=== PATIENT | male | born 1945 | race Caucasian/White ===

== ENCOUNTER 2017-02-11 17:59 | Inpatient (IN) ==
[2017-02-11] MEDS ORDERED: ROCEPHIN 1 GM/NS 1 GM/50 ML IVPB IV ONE (19:07)
--- NOTE | 2017-02-11 19:57 | PROVIDER DOCUMENTATION ---
This chart was entered by Bria Henriquez Scribe, acting as scribe for John Conte PA. HPI-General Adult - General Chief Complaint: Fever Stated Complaint: FEVER Time Seen by Provider: 02/11/17 18:19 Source: patient Allergies/Adverse Reactions: Patient Allergies Allergy/AdvReac Type Severity Reaction Status Date / Time azithromycin [From Zithromax] Allergy Unknown Verified 01/27/17 10:27 levofloxacin [From Levaquin] Allergy Unknown Verified 01/27/17 10:27 Home Medications: Home Medication List Medication Instructions Recorded Confirmed Last Taken Type Albuterol Sulfate [Proair Hfa] 8.5 gm IH Q4HR PRN 01/27/17 01/27/17 Unknown History Allopurinol [Zyloprim] 300 mg PO DAILY 01/27/17 01/27/17 Unknown History Amitriptyline HCl [Amitriptyline 100 mg PO HS 01/27/17 01/27/17 Unknown History HCl] Aspirin EC 81 mg PO DAILY 01/27/17 01/27/17 Unknown History Atorvastatin Calcium [Atorvastatin 40 mg PO DAILY 01/27/17 01/27/17 01/26/17 17: 09 History Calcium] Famotidine [Pepcid] 20 mg PO BID 01/27/17 01/27/17 Unknown History Fluticasone 50 Mcg Nasal [place] 1 spray JUAN DAILY 01/27/17 01/27/17 Unknown History [Flonase] Furosemide [Furosemide] 20 mg PO DAILY PRN PRN 01/27/17 01/27/17 Unknown History Isosorbide Mononitrate [Isosorbide 30 mg PO DAILY 01/27/17 01/27/17 Unknown History Mononitrate ER] Lorazepam [Lorazepam] 0.5 mg PO 01/27/17 Unknown History Methocarbamol 500 mg PO BID 01/27/17 01/27/17 Unknown History Metoprolol Succinate [Metoprolol 12.5 mg PO DAILY 01/27/17 01/27/17 Unknown History Succinate] Ondansetron [Zofran] 4 mg IM Q8H PRN PRN 01/27/17 01/27/17 Unknown History Oxycodone HCl/Acetaminophen 1 each PO HS 01/27/17 01/27/17 Unknown History [Endocet 7.5-325 mg Tablet] Pantoprazole Sodium [Pantoprazole 40 mg PO HS 01/27/17 01/27/17 Unknown History Sodium] Pregabalin [Lyrica] 100 mg PO HS 01/27/17 01/27/17 Unknown History Ranitidine HCl [Zantac] 150 mg PO DAILY 01/27/17 01/27/17 Unknown History Sertraline HCl [Sertraline HCl] 100 mg PO DAILY 01/27/17 01/27/17 Unknown History Tamsulosin HCl [Tamsulosin HCl] 0.4 mg PO DAILY 01/27/17 01/27/17 Unknown History - History of Present Illness -Gen Adult Nature of Presenting Problems: 71 year old M presents to the ED from [facility] with a fever and headache x2 days. Pt had labs drawn today and x-ray[place] [id number] and chest x-ray was normal and sinus x-ray was abnormal. Pt has a hx of sinus infections. Pt also c/o nausea and decreased appetite. Location of Pain/Injury: reports: head Pain Radiation: reports: no radiation Quality of Pain: reports: aching Severity: reports: mild Onset/Duration: reports: 2 days ago Timing: reports: still present Associated Symptoms: reports: fever/chills, headaches, nausea Similar Symptoms Previously?: No Recently seen or treated by another doctor?: Yes Review of Systems - Adult - REVIEW OF SYSTEMS - ADULT Constitutional: reports: fever. denies: chills Eyes: reports: no symptoms reported Ears, Nose, Mouth & Throat: reports: no symptoms reported Cardiovascular: reports: no symptoms reported Respiratory: reports: no symptoms reported Gastrointestinal: reports: nausea, poor appetite Genitourinary: reports: no symptoms reported Musculoskeletal: reports: no symptoms reported Integumentary: reports: no symptoms reported Neurological: reports: headache/migraines. denies: dizziness/vertigo Psychiatric: reports: no symptoms reported Endocrine: reports: no symptoms reported Hematologic/Lymphatic: reports: no symptoms reported Allergic/Immunologic: reports: no symptoms reported All Other Systems: Reviewed and Negative Past History - Adult - PAST MEDICAL HISTORY-ADULT Review of Records: reports: Nursing Assessment Review, Medications Reviewed Cardiovascular: reports: HTN Genitourinary: reports: kidney disease Neurological: reports: Seizures/Epilepsy Psychiatric: reports: depression Endocrine/Immune: reports: thyroid disorder - PRIOR SURGERIES/PROCEDURES Surgical/Procedure History: reports: hernia repair, back/neck - IMMUNIZATION STATUS Childhood Immunizations: See Nurse Assessment Flu Vaccine: See Nurse Assessment - SOCIAL HISTORY Smoking: non-smoker Substance Use: none/never Alcohol Use Frequency: occasionally Physical Exam-General - PHYSICAL EXAM-ADULT Initial Vital Signs Reviewed: Yes - CONSTITUTIONAL General Appearance: alert, no apparent distress - HEAD, EARS, NOSE, MOUTH & THROAT HENMT: frontal tenderness, other (bilateral cerumen impaction) - RESPIRATORY Respiratory: chest non-tender, lungs clear, normal breath sounds - CARDIOVASCULAR Cardiovascular: normal peripheral pulses, regular rate, rhythm, no edema - GASTROINTESTINAL (ABDOMEN) Abdominal Exam: non tender, soft - SKIN Integumentary: normal color, normal turgor, warm/dry - PSYCHIATRIC Psych/Mental Status: normal mood/affect, normal thought content, normal thought process, oriented x 3 Progress - PLAN OF CARE/RESULTS Progress/Plan/Lab Results: Vital Signs - 8 hr 02/11/17 18:14 Temperature 99.8 F H Pulse Rate 52 L Respiratory Rate 20 Blood Pressure 127/71 O2 Sat by Pulse Oximetry 93 L Orders Category Date Time Status Saline Loc NOW Care 02/11/17 18:[address] ABD/PELVIS W/ IV CONT ONLY [CT] Stat Exams 02/11/17 18:35 Ordered HEAD/NECK W/CONTRAST [CT] Stat Exams 02/11/17 18:21 Ordered BLOOD CULTURE [BLDCUL] Stat Lab 02/11/17 18:24 Ordered - CT/MRI 1 CT Study: Sinuses Impression: Abnormal (FINDINGS: There is extensive right maxillary sinus disease with subtotal opacification. The right ostiomeatal unit is obstructed by thickened mucosa. There is milder mucosal thickening involving the ethmoid sinuses and sphenoid sinuses bilaterally. The frontal sinuses are clear. The mastoid air cells are clear. The bony structures are grossly intact. IMPRESSION: 1.Right maxillary, bilateral ethmoid, and bilateral sphenoid sinus mucosal disease, which is worse at the right maxillary sinus where there is subtotal opacification. 2.Obstructed right ostiomeatal unit due to thickened maxillary mucosa.) 2 CT Study: Abdomen, Pelvis Impression: Abnormal ( FINDINGS: There is focal airspace consolidation at the medial right lung base and, to lesser degree , the left lung base suggesting pneumonia. There are a few calcified granulomata in the spleen. There are several cystic-appearing foci involving both kidneys with the largest on the left measuring up to 4.1 cm. The kidneys are grossly unremarkable, otherwise. The gallbladder, liver, adrenal glands, and pancreas are unremarkable. The urinary bladder is unremarkable. No focal inflammatory changes, free abdominal gas, or free fluid is appreciated. The GI tract is essentially unremarkable. IMPRESSION: 1.Consolidations at the right lung base and, to a much lesser degree, the left lung base suggesting pneumonia. 2.Incidental/nonacute abdominal findings but no evidence of acute abdominal or pelvic pathology.) - CONSULTS/PCP/HOSPITALIST Notification #1 *Consult/PCP/Hospitalist*: Dr. Mg(hospitalist) Time Discussed: 21:43 Consult Disposition: Admit Departure - Departure Date of Disposition Decision: 02/11/17 Time of Disposition Decision: 21:46 DIAGNOSIS: Sinus infection Qualifiers: Sinusitis location: frontal Chronicity: subacute Qualified Code(s): J01.10 - Acute frontal sinusitis, unspecified Pneumonia Qualifiers: Pneumonia type: due to unspecified organism Laterality: bilateral Lung location : lower lobe of lung Qualified Code(s): J18.9 - Pneumonia, unspecified organism Disposition: ADMITTED INPATIENT 09 Certified Medical Emergency: Emergent Condition: Stable Referrals and Follow-Ups: None,PCP [Primary Care Provider] - - Critical Care Note This patient required my direct & personal management of CC.: No This chart was documented by the indicated scribe, (Bria Henriquez Scribe) and accurately reflects the services I performed and decisions made by me, John Conte PA, as attested by the provider's signature.
--- NOTE | 2017-02-11 20:08 | Diag Imaging Result Doc PS360 ---
EXAM: PARANASAL SINUSES TECHNIQUE: INDICATION: leukocytosis, sinusitis on plain film COMPARISON: None. FINDINGS: There is extensive right maxillary sinus disease with subtotal opacification. The right ostiomeatal unit is obstructed by thickened mucosa. There is milder mucosal thickening involving the ethmoid sinuses and sphenoid sinuses bilaterally. The frontal sinuses are clear. The mastoid air cells are clear. The bony structures are grossly intact. IMPRESSION: 1.Right maxillary, bilateral ethmoid, and bilateral sphenoid sinus mucosal disease, which is worse at the right maxillary sinus where there is subtotal opacification. 2.Obstructed right ostiomeatal unit due to thickened maxillary mucosa. Electronically signed by John Rowell 02/11/2017 8:05 PM
--- NOTE | 2017-02-11 20:22 | Diag Imaging Result Doc PS360 ---
EXAM: CT ABD/PELVIS W/ IV CONT ONLY INDICATION: nausea, leukocytosis TECHNIQUE: Dose reduction protocol was used. COMPARISON: None. FINDINGS: There is focal airspace consolidation at the medial right lung base and, to lesser degree, the left lung base suggesting pneumonia. There are a few calcified granulomata in the spleen. There are several cystic-appearing foci involving both kidneys with the largest on the left measuring up to 4.1 cm. The kidneys are grossly unremarkable, otherwise. The gallbladder, liver, adrenal glands, and pancreas are unremarkable. The urinary bladder is unremarkable. No focal inflammatory changes, free abdominal gas, or free fluid is appreciated. The GI tract is essentially unremarkable. IMPRESSION: 1.Consolidations at the right lung base and, to a much lesser degree, the left lung base suggesting pneumonia. 2.Incidental/nonacute abdominal findings but no evidence of acute abdominal or pelvic pathology. Electronically signed by John Rowell 02/11/2017 8:20 PM
[2017-02-11] MEDS ORDERED: NS 1,000 ML IV ONE (21:47)
[2017-02-11] MEDS ORDERED: MORPHINE IV PRN (21:47)
[2017-02-12 06:25] LABS: MANUAL DIFF NEEDED? NO
[2017-02-12 06:46] LABS: BASO% 0.2 % (0.0-0.8); EOS% 1.2 % (0.0-10.0); HEMATOCRIT 36.8 % (42.0-52.0); HEMOGLOBIN 12.5 g/dL (14.0-18.0); IMM GRAN# 0.04 X1000 (0.0-0.04); IMM GRAN% 0.2 % (0.0-0.5); LYMPH# 1.69 X1000 (1.2-3.4); LYMPH% 10.3 % (20.5-51.1); MCH 29.3 PG (27-31); MCV 86.4 FL (81-99); MONO# 1.68 X1000 (0.11-0.59); MONO% 10.2 % (1.7-9.3); MPV 9.3 FL (7.4-10.4); NEUT% 77.9 % (42.2-75.2); PLT 262 X1000 (130-400); RBC 4.26 XMIL (4.7-6.1)
[2017-02-12] MEDS ORDERED: MORPHINE IV PRN (06:52)
[2017-02-12 06:58] LABS: AGAP 10; ALBUMIN 3.5 g/dL (3.5-5.0); ALKALINE PHOSPHATASE 94 U/L (32-122); BUN 14 mg/dL (8-22); CALCIUM 8.7 mg/dL (8.8-10.2); CHLORIDE 103 mmol/L (98-107); COSMO 276; GOT 18 U/L (10-34); GPT 32 U/L (10-44); POTASSIUM 3.8 mmol/L (3.5-5.1); SODIUM 137 mmol/L (136-145); TCO2 24 mmol/L (25-35); TOTAL PROTEIN 6.5 g/dL (6.3-8.3)
[2017-02-12] MEDS ORDERED: LASIX PO PRN (07:46)
[2017-02-12] MEDS ORDERED: PEPCID PO PRN (07:46)
[2017-02-12] MEDS ORDERED: FLONASE NAS PRN (07:46)
[2017-02-12] MEDS: TOPROL XL PO SCH (08:54)
[2017-02-12] MEDS: PROTONIX PO SCH ×2 (08:54→20:17)
[2017-02-12] MEDS: DOXYCYCLINE PO SCH ×2 (08:54→20:16)
[2017-02-12] MEDS: FLOMAX PO SCH (08:54)
[2017-02-12] MEDS: DUONEB (A & A) INH PRN ×2 (11:33→14:52)
[2017-02-12] MEDS: LYRICA PO SCH ×2 (13:25→20:17)
--- NOTE | 2017-02-12 15:59 | HISTORY AND PHYSICAL ---
CHIEF COMPLAINT: Fever. HISTORY OF PRESENT ILLNESS: This is a 71-year-old gentleman with a history of sinus infections and hypertension, who presented to the emergency room complaining of fever and headache x2 days. He was evaluated by his primary care physician as an outpatient and outpatient labs were drawn. He was found to have a white count of 20,000. He complains of a headache that is a throbbing, aching type pain. He was a patient at [facility] and he had labs drawn where found to have a white count of 22 and x-rays that revealed sinusitis. Therefore, he was sent to the emergency room for evaluation. He complains of a headache that is primarily in his forehead behind his eyes and the top of his head that is consistent with his previous sinusitis and headaches. He has had a fever of 99-100. He denies any nasal drainage, change in vision, vomiting, diarrhea and constipation. He has had nausea. A CT of the abdomen and pelvis was performed which revealed bilateral lower lobe pneumonia with nonacute findings. Blood cultures were drawn. He was given Rocephin and admitted for further evaluation and treatment. PAST MEDICAL HISTORY: PR, DVT, PE, hypertension, chronic back pain, chronic renal insufficiency, BPH, arthritis, hypothyroid, depression. PAST SURGICAL HISTORY: Hernia repair. SOCIAL HISTORY: He denies tobacco or illicit drug use. He does drink alcohol. ALLERGIES: Azithromycin and Levaquin with unknown reactions. HOME MEDICATIONS: A list will be obtained. REVIEW OF SYSTEMS: A 14 point review of systems is discussed with patient with pertinent positives being stated in the HPI. He denied dizziness, syncope, shortness of breath, PND, orthopnea, any chest pain, palpitations, vomiting, diarrhea, constipation, black or bloody vomitus, black or bloody stools, hematuria, dysuria, frequency, urgency. PHYSICAL EXAMINATION: GENERAL: This is a 71-year-old male who is sitting up in the bed in no distress. VITAL SIGNS: Blood pressure is 149/76 with a heart rate of 102, respirations are 18, temperature is 99.8 degrees oral with room air saturations 95% to 97%. HEENT: Head is normocephalic, atraumatic. Pupils equal, round, react to light. EOMS are intact. Sclerae are anicteric. Mucous membranes are moist. NECK: Supple with trachea midline. CARDIOVASCULAR: Regular rate and rhythm. S1 and S2 appreciated. PULMONARY: Breath sounds are clear with no increased work of breathing noted. Chest does rise and fall symmetrically with respiration. GASTROINTESTINAL: Abdomen is soft, nontender, nondistended with bowel sounds in all 4 quadrants. BACK: No CVAT. No spine tenderness. MUSCULOSKELETAL: Good range of motion of joints. EXTREMITIES: No clubbing, cyanosis, or edema. Calves are nontender and pulses are palpable x4. NEUROLOGIC: He is alert and oriented with cranial nerves 2-12 grossly intact. DIAGNOSTICS: WBC is 16.4, with a hemoglobin 12.5, hematocrit 36.8, platelets of 262. Sodium is 137, potassium 3.8, BUN 14, creatinine 1.1 with a glucose of 124. CT of the abdomen and pelvis revealed bilateral lower lobe pneumonia with cystic-appearing foci involving both kidneys with the largest on the left measuring 4.1 cm. Kidneys are grossly unremarkable otherwise. Gallbladder, liver, adrenal glands and pancreas are unremarkable. Urinary bladder is unremarkable. No focal inflammatory changes, free abdominal gas or free fluid appreciated. GI tract is unremarkable. Sinus CT revealed right maxillary, bilateral ethmoid, bilateral sphenoid sinus mucosal disease, which is worse on the right maxillary sinus with subtotal opacification. Obstructive right ostiomeatal unit due to thickened maxillary mucosa. ASSESSMENT AND PLAN: 1. Multilobar pneumonia. Blood cultures have been drawn. He was given Rocephin in the emergency room. We will continue this along with intravenous hydration. We will identify his home medications and continue as appropriate. We will start incentive spirometer. We will add doxycycline. 2. Sinusitis. Antibiotics as stated above. We will continue Flonase. 3. Hypertension. We will continue his home medications and monitor vital signs. 4. Chronic kidney disease. Creatinine is 1.1. He has been 1 and 1.1. We will monitor labs daily. 5. Benign prostatic hypertrophy. 6. Hypercholesterolemia. 7. Arthritis. 8. Fibromyalgia. PLAN: He will be admitted; he will be placed on telemetry. We will identify his home medications and continue as appropriate. If trending labs daily, further treatments pending hospital course. Dictated by RADHA Ortiz for Paulino Mg MD cc: RADHA Ortiz MD
[2017-02-12] MEDS: ZYLOPRIM PO SCH (17:53)
[2017-02-12] MEDS: ROCEPHIN 1 GM/NS 1 GM/50 ML IVPB IV SCH (18:00)
[2017-02-12] MEDS: LIPITOR PO SCH (20:16)
[2017-02-12] MEDS: IMDUR PO SCH (20:16)
[2017-02-12] MEDS: ELAVIL PO SCH (20:17)
[2017-02-12] MEDS: LIBRIUM PO SCH (20:17)
[2017-02-13 05:50] LABS: HEMOGLOBIN 11.4 g/dL (14.0-18.0); MCH 28.7 PG (27-31); MCHC 32.6 g/dL (33-37); MCV 88.2 FL (81-99); MPV 9.3 FL (7.4-10.4); RBC 3.97 XMIL (4.7-6.1)
[2017-02-13 06:04] LABS: AGAP 11; BUN 19 mg/dL (8-22); CALCIUM 8.8 mg/dL (8.8-10.2); CHLORIDE 107 mmol/L (98-107); COSMO 285; POTASSIUM 3.6 mmol/L (3.5-5.1); SODIUM 141 mmol/L (136-145); TCO2 23 mmol/L (25-35)
[2017-02-13] MEDS: LYRICA PO SCH ×3 (06:06→19:59)
[2017-02-13] MEDS: PROTONIX PO SCH ×2 (06:06→19:59)
[2017-02-13] MEDS ORDERED: PEPCID PO PRN (06:22)
[2017-02-13] MEDS: DUONEB (A & A) INH PRN (08:00)
[2017-02-13] MEDS: TOPROL XL PO SCH (08:53)
[2017-02-13] MEDS: DOXYCYCLINE PO SCH ×2 (08:53→19:59)
[2017-02-13] MEDS: FLOMAX PO SCH (08:53)
[2017-02-13] MEDS: ROCEPHIN 1 GM/NS 1 GM/50 ML IVPB IV SCH (17:30)
[2017-02-13] MEDS: ZYLOPRIM PO SCH (17:31)
[2017-02-13] MEDS: LIBRIUM PO SCH (19:59)
[2017-02-13] MEDS: ELAVIL PO SCH (19:59)
[2017-02-13] MEDS: IMDUR PO SCH (19:59)
[2017-02-13] MEDS: LIPITOR PO SCH (19:59)
[2017-02-14] MEDS: LYRICA PO SCH ×3 (05:57→21:25)
[2017-02-14] MEDS: PROTONIX PO SCH ×2 (05:59→21:25)
[2017-02-14 06:25] LABS: HEMATOCRIT 34.5 % (42.0-52.0); HEMOGLOBIN 11.3 g/dL (14.0-18.0); MCH 28.5 PG (27-31); MCHC 32.8 g/dL (33-37); MCV 86.9 FL (81-99); MPV 9.4 FL (7.4-10.4); RBC 3.97 XMIL (4.7-6.1)
[2017-02-14 06:43] LABS: AGAP 13; ALBUMIN 3.4 g/dL (3.5-5.0); ALKALINE PHOSPHATASE 91 U/L (32-122); BUN 17 mg/dL (8-22); CALCIUM 8.4 mg/dL (8.8-10.2); CHLORIDE 106 mmol/L (98-107); COSMO 282; GOT 20 U/L (10-34); GPT 33 U/L (10-44); SODIUM 140 mmol/L (136-145); TCO2 21 mmol/L (25-35); TOTAL PROTEIN 5.6 g/dL (6.3-8.3)
--- NOTE | 2017-02-14 07:19 | Diag Imaging Result Doc PS360 ---
EXAM: CHEST-2 VIEWS HISTORY: hypoxia TECHNIQUE: PA and lateral chest COMMENT: There are granulomatous calcifications in the right lower lobe and hilum. There is a granuloma in the left apex. No evidence of acute pulmonary or cardiac disease is present. Compared to 02/11/2017 there is been no significant change. IMPRESSION: Stable chest. Electronically signed by Marck Gilbert 02/14/2017 7:17 AM
[2017-02-14] MEDS: FLOMAX PO SCH (09:29)
[2017-02-14] MEDS: TOPROL XL PO SCH (09:29)
[2017-02-14] MEDS: OMNICEF PO SCH ×2 (09:29→21:25)
[2017-02-14] MEDS: DOXYCYCLINE PO SCH ×2 (09:30→21:25)
--- NOTE | 2017-02-14 09:44 | PROGRESS NOTE ---
DATE: 02/14/2017 SUBJECTIVE: Patient without any new complaints today. States he is actually feeling a little bit stronger. Overall feels like he is getting better. Denies any cough or congestion. States he is able to get out of bed a little bit, but still needs assistance. Denies any GI or issues. PHYSICAL EXAMINATION: Temperature 99, pulse 91, respiratory rate 18, BP 153/71, saturation 95% on room air.General: Patient is awake, alert, currently in no respiratory distress. Pleasant to talk with. Neck: Supple. CV: Regular rate. Chest: Relatively clear. Positive rhonchi. No crackles, no wheezing. Abdomen: Soft. Extremities: Moves all extremities. Neurologic: No focal changes. Skin: Warm and dry. No rashes. DIAGNOSTIC DATA: WBCs is 9, hemoglobin and hematocrit 11 and 33, glucose 126, calcium 8.4. ASSESSMENT: 1. Mild protein calorie malnutrition. 2. Hyperglycemia. 3. Leukocytosis, resolved. 4. Adult failure to thrive. 5. Benign prostatic hypertrophy. 6. Multiple lobar pneumonia, improved. 7. Chronic fibromyalgia. PLAN: Certainly feel as though patient would benefit from going to rehab. We will consult Assistant [employer] for assistance. We will begin changing his medications to oral in anticipation of discharge. cc: Paulino Mg MD
[2017-02-14] MEDS: ZYLOPRIM PO SCH (16:42)
[2017-02-14] MEDS: DUONEB (A & A) INH PRN ×2 (20:06→22:55)
[2017-02-14] MEDS: IMDUR PO SCH (21:25)
[2017-02-14] MEDS: LIBRIUM PO SCH (21:25)
[2017-02-14] MEDS: ELAVIL PO SCH (21:25)
[2017-02-14] MEDS: LIPITOR PO SCH (21:25)
[2017-02-15] MEDS: PROTONIX PO SCH ×2 (06:03→20:12)
[2017-02-15] MEDS: LYRICA PO SCH ×3 (06:03→20:12)
[2017-02-15] MEDS: FLOMAX PO SCH (08:47)
[2017-02-15] MEDS: TOPROL XL PO SCH (08:47)
[2017-02-15] MEDS: PRINIVIL PO SCH (08:47)
[2017-02-15] MEDS: OMNICEF PO SCH ×2 (08:47→20:12)
[2017-02-15] MEDS: DOXYCYCLINE PO SCH ×2 (08:48→20:12)
--- NOTE | 2017-02-15 11:49 | DISCHARGE SUMMARY ---
ADMISSION DATE: 02/11/2017 DISCHARGE DATE: 02/15/2017 DIAGNOSES: 1. Multilobar pneumonia. 2. Sinusitis. 3. Hypertension. 4. Chronic kidney disease. 5. Benign prostatic hypertrophy. 6. Arthritis. 7. Fibromyalgia. 8. Mild protein calorie malnutrition. 9. Adult failure to thrive. DIAGNOSTICS: 1. 02/11/2017, CT of the sinuses revealed right maxillary bilateral ethmoid and bilateral sphenoid sinus mucosal disease worse on the right maxillary sinus. Obstructing right ostiomeatal unit due to thickened maxillary mucosa. The frontal sinuses are clear. Mastoid air cells are clear. 2. 02/11/2017, CT of the abdomen and pelvis. Consolidations at the right lung base and to a much lesser degree the left lung base suggesting pneumonia incidental. 3. Microbiology, no growth after 48 hours blood cultures x2. HOSPITAL COURSE: Mr. Wright presented to the emergency room complaining of fever and headache for 2 days. He was found to have bilateral lower lobe pneumonia as well as sinusitis. Blood cultures were drawn which were negative. He received antibiotic coverage of Rocephin and doxycycline. He has been transitioned over to Omnicef and doxycycline for outpatient. He does have a history of chronic kidney disease and creatinine has stayed 1.1 throughout the hospitalization. He was treated with DuoNeb q.4 hours. O2 saturations stayed in the 95-97 range on room air. DISCHARGE PHYSICAL EXAMINATION: Cardiovascular: Regular rate and rhythm. S1 and S2 appreciated. Pulmonary: Chest is relatively clear. He does have rhonchi that clear to cough. No wheezing or crackles. Gastrointestinal: Abdomen is soft, nontender, nondistended with bowel sounds in all 4 quadrants. Extremities: He had no clubbing cyanosis or edema. Calves are nontender. Pulses are palpable x4. Neurologic: He is awake, alert and oriented. Cranial nerves 2-12 grossly intact. DISCHARGE MEDICATIONS: Omnicef 300 mg p.o. b.i.d. for 10 days and doxycycline 100 mg p.o. b.i.d. for 10 days. Amitriptyline 100 mg at bedtime. Tamsulosin 0.4 daily. Atorvastatin 40 mg daily. Furosemide 20 daily. Lyrica 100 mg q.8 hours. Protonix 40 mg b.i.d. Zyloprim 300 with supper. Isosorbide mononitrate 30 mg at bedtime. Librium 25 mg at bedtime. Zantac 150 mg daily. Metoprolol succinate 12.5 daily. ProAir inhaler 1 puff q.4 hours as needed. Flonase 1 spray daily. DISCHARGE VITAL SIGNS: Blood pressure is 155/71 with a heart rate of 99. Respirations are 18, temperature is 98.9 with room air saturations ranging 95-99%. DISCHARGE ACTIVITY: As tolerated. DISCHARGE DIET: Regular diet. DISPOSITION: He is being discharged to rehab in stable condition via EMS transport. TIME SPENT AT DISCHARGE: This is a greater than 30 minute discharge. Dictated by RADHA Ortiz for Paulino Mg MD cc: RADHA Ortiz MD
[2017-02-15] MEDS: ZYLOPRIM PO SCH (17:09)
[2017-02-15] MEDS: LIPITOR PO SCH (20:12)
[2017-02-15] MEDS: LIBRIUM PO SCH (20:12)
[2017-02-15] MEDS: ELAVIL PO SCH (20:12)
[2017-02-15] MEDS: IMDUR PO SCH (20:12)
[2017-02-15] MEDS: DUONEB (A & A) INH PRN (20:20)
[2017-02-16] MEDS: PROTONIX PO SCH ×2 (05:52→06:59)
[2017-02-16] MEDS: LYRICA PO SCH ×2 (05:52→12:46)
[2017-02-16] MEDS: DUONEB (A & A) INH PRN (07:56)
[2017-02-16] MEDS: OMNICEF PO SCH (08:55)
[2017-02-16] MEDS: FLOMAX PO SCH (08:55)
[2017-02-16] MEDS: PRINIVIL PO SCH (08:55)
[2017-02-16] MEDS: DOXYCYCLINE PO SCH (08:55)
[2017-02-16] MEDS: TOPROL XL PO SCH (08:55)
[2017-02-16 14:16] VITALS: BP 124/69
== END 2017-02-16 14:25 ==
LOC: P.ED 17:59 → P.MEDSURG 22:34
PROVIDERS: ATTEND Family Medicine